=== PATIENT | female | born 1995 | race Caucasian/White ===

== ENCOUNTER 2019-05-30 10:26 | Emergency (ER) | payer OTHER ==
[~2019-05-30] VITALS: Ht 162.6 cm; Wt 66.2 kg
== END 2019-05-30 12:20 | disposition home or self-care (01) ==
LOC: ER 10:26
DX: T52.8X4A Toxic effect of other organic solvents, undetermined, initial encounter (principal); T24.621A Corrosion of second degree of right knee, initial encounter; M25.561 Pain in right knee; T79.8XXA Other early complications of trauma, initial encounter; Y93.89 Activity, other specified; Y92.89 Other specified places as the place of occurrence of the external cause; Y99.8 Other external cause status